=== PATIENT | male | born 1970 | race Hispanic/Latino ===

== ENCOUNTER 2018-08-15 16:24 | Emergency (ER) | payer OTHER, SELFPAY ==
[2018-08-15 16:25] VITALS: BP 156/90; PULSE 80; RESP 18; TEMP 36.5; O2SAT 99; BMI 31.8
--- NOTE | 2018-08-15 17:14 | ED.DCSUM_ITS ---
- ER Visit Summary Date of Service: 08/15/18 Chief Complaint: Back pain History of Present Illness: The patient is a 48 M presenting with back pain ?3 weeks. Patient does not recall a specific injury. He does frequent lifting at work. Today the pain became more severe. He has tried [id number] medication without relief. He denies bowel or bladder incontinence. Denies numbness or weakness. Denies fever. Physical Examination: Vitals are stable. Patient is afebrile. Alert no acute distress. HEENT exam is unremarkable. Neck is supple. Lungs are clear and equal bilaterally. Heart is regular rate and rhythm. Abdomen is soft nontender nondistended. Back: Left paraspinal lumbar muscle tenderness, straight leg raise positive at 30? on the left Extremities are unremarkable. Skin is warm and dry. No focal neurologic deficit. Normal strength and sensation Remainder of exam is unremarkable. Emergency Department Course and Treatment: Patient is given morphine, Zofran IM. On reevaluation, patient is feeling improved. He is given a prescription for Naprosyn and Flexeril. Advised to follow-up with his primary care physician. Advised return to ED if worsening complaints. Disposition: Discharge home Impression: Lumbar strain This note was generated with [employer] dictation software. It may contain incorrect words, spelling, and punctuation that were not noted in review of the chart prior to signing ED Disposition - Plan for ED Patient: Chief Complaint: Back Instructions: ED Neck Back Pain General Prescriptions: Naproxen [Naprosyn] 500 mg PO BID PRN #20 tablet Cyclobenzaprine [Flexeril] 10 mg PO TID PRN #20 tablet PRN Reason: Muscle Spasm Referrals: Care Physician,No Primary [Primary Care Provider] -
[2018-08-15] MEDS: morphine 10 MG/ML Syringe IM (17:24)
[2018-08-15] MEDS: Ondansetron 4 MG/2 ML Vial IM (17:24)
[2018-08-15 17:34] VITALS: BP 152/91; PULSE 87; RESP 16; O2SAT 100
--- NOTE | 2018-08-15 18:32 | ED.DEP ---
ED Disposition - Plan for ED Patient: Chief Complaint: Back Instructions: ED Neck Back Pain General Prescriptions: Naproxen [Naprosyn] 500 mg PO BID PRN #20 tablet Cyclobenzaprine [Flexeril] 10 mg PO TID PRN #20 tablet PRN Reason: Muscle Spasm Referrals: Care Physician,No Primary [Primary Care Provider] -
[2018-08-15 18:56] VITALS: BP 211/115; PULSE 87; RESP 18
[2018-08-15 19:13] VITALS: BP 189/110; PULSE 87; RESP 14; O2SAT 100
== END 2018-08-15 19:14 | disposition home or self-care (01) ==
LOC: ED 18:19
PROVIDERS: Emergency Provider Emergency Medicine
DX: S39.012A Strain of muscle, fascia and tendon of lower back, initial encounter (principal); X50.3XXA Overexertion from repetitive movements, initial encounter; Y93.89 Activity, other specified
CPT/HCPCS: 96372; 99282; J2405

== ENCOUNTER 2018-08-17 13:44 | Emergency (ER) | payer OTHER, SELFPAY ==
[2018-08-17 13:45] VITALS: BP 176/102; PULSE 82; RESP 16; TEMP 36.2; O2SAT 98; BMI 31.3
--- NOTE | 2018-08-17 13:59 | MRI_ITS ---
STUDY: MRI LUMBAR SPINE WITHOUT CONTRAST REASON FOR EXAM: Male, 48 years old. back pain since Cl, acute onset of quadriceps weakness, absent patellar reflex L leg pain and weakness TECHNIQUE: Standardized fat and water weighted pulse sequences were obtained in the sagittal and axial planes. COMPARISON: None FINDINGS: Normal lumbar lordosis. There is no substantial scoliosis. Normal conus medullaris that terminates at the T12-L1 level. There is loss of disc height at L1-2 and L2-3. Vertebral body heights are maintained. Bone marrow signal is normal. There is congenital central canal stenosis. At L4 the AP diameter of the canal measures 5 mm. There is multilevel facet arthropathy and ligamentum flavum hypertrophy. T12/L1: There is a diffuse bulge slightly larger on the right. There is impression on the ventral thecal sac and mild right without left neuroforaminal stenosis. L1/2: There is a diffuse bulge slightly larger on the left. There is impression on the ventral thecal sac and mild left worse than right neuroforaminal stenosis. L2/3: There is a minimal diffuse bulge slightly larger on the left. There is impression on the ventral thecal sac and mild to moderate left and mild right neuroforaminal stenosis. L3/4: There is a mild diffuse bulge slightly larger on the left with the left foraminal and far lateral annular tear. There is no acquired central canal stenosis. There is moderate left and mild to moderate right neuroforaminal stenosis. L4/5: There is a mild diffuse bulge with right foraminal and left paracentral annular tears. There is impression on the ventral thecal sac and [id number] bilateral neuroforaminal stenosis. L5/S1: There is a small right foraminal protrusion with an annular tear. There is mild right neuroforaminal stenosis. No acquired central canal or left neuroforaminal stenosis. Normal visualized sacral ala. Normal visualized paraspinous soft tissue structures. MRI/Spine Lumbar (Routine) IMPRESSION: Multilevel degenerative changes, as described above. There is congenital central canal stenosis. T12/L1: There is a diffuse bulge. There is mild right neuroforaminal stenosis. L1/2: There is a diffuse bulge. There is mild left worse than right neuroforaminal stenosis. L2/3: There is a minimal diffuse bulge. There is mild to moderate left and mild right neuroforaminal stenosis. L3/4: There is a mild diffuse bulge with annular tears. There is moderate left and mild to moderate right neuroforaminal stenosis. L4/5: There is a mild diffuse bulge with annular tears. There is ubri-ep-[id number] bilateral neuroforaminal stenosis. L5/S1: There is a small right foraminal protrusion with an annular tear. There is mild right neuroforaminal stenosis. Electronically Signed: Alexia Gale MD at 16:26 EDT , Service support ,
[2018-08-17] MEDS: Ketorolac 15 MG/ML Vial IV (14:18)
[2018-08-17] MEDS: Morphine 4 MG/ML Syringe IV (14:18)
[2018-08-17] MEDS: Ondansetron 4 MG/2 ML Vial IV (14:18)
--- NOTE | 2018-08-17 14:40 | RAD_ITS ---
STUDY: X-RAY - ORBITS REASON FOR EXAM: Male, 48 years old. This study is being performed as a clearance examination for exclusion of orbital metal, prior to the performance of an MRI examination. TECHNIQUE: 2 view(s) of the orbits were obtained. COMPARISON: None. FINDINGS: Normal bilateral orbits without a metallic orbital foreign body. Normal visualized facial bones. Left maxillary sinus is small. The soft tissue structures are unremarkable. RAD/Orbits for Foreign Body IMPRESSION: No demonstrated metallic orbital foreign body. The patient is cleared for an MRI examination. Electronically Signed: Alexia Gale MD at 15:33 EDT , Service support ,
[2018-08-17 16:26] VITALS: BP 146/92; PULSE 81; RESP 16; O2SAT 97
--- NOTE | 2018-08-17 16:47 | ED.VISSUMM ---
- ER Visit Summary Date of Service: 08/17/18 Chief Complaint: Severe left lower back pain with radiation anteriorly to the knee region History of Present Illness: The patient is a 48 M who was seen on Saturday. The dictated report was read. The written report was not available. He reports he is now walking with a cane. He denies bowel bladder dysfunction. He denies saddle paresthesia or anesthesia. He denies fever or chills. He was prescribed Flexeril and nonsteroidal. There is no history of Direct trauma. He denies foot drop. Please read written note for complete detail. He does report preference of standing versus sitting. Physical Examination: Patient appears uncomfortable. Blood pressure is elevated 176/102. Head is atraumatic normocephalic. Pupils are equal round reactive. Extraocular muscles are intact. TMs are pearly white with landmarks noted. Nares patent with no drainage. Posterior pharynx without erythema or exudate. Uvula is midline. There is no dysphonia or dysphasia. Trachea is midline. There is no stridor with auscultation of the neck. Heart is regular without murmur, gallop or rub. S1 and S2 are normal. Lungs are clear to auscultation with good movement of air bilaterally. Abdomen soft nontender bowel sounds are present normal. Straight leg test is negative right and left. Equivocal femoral stretch test on the left. Patella and ankle reflex are 2+ on the right. Plus minus patellar reflex on the left and 2+ ankle reflex on the left. EHL is intact. There is no clonus or Babinski sign. Normal perianal sensation. DP and PT pulses are palpable and 2+. Test Results: There is congenital central canal stenosis. T12/L1: There is a diffuse bulge. There is mild right neuroforaminal stenosis. L1/2: There is a diffuse bulge. There is mild left worse than right neuroforaminal stenosis. L2/3: There is a minimal diffuse bulge. There is mild to moderate left and mild right neuroforaminal stenosis. L3/4: There is a mild diffuse bulge with annular tears. There is moderate left and mild to moderate right neuroforaminal stenosis. L4/5: There is a mild diffuse bulge with annular tears. There is [id number] bilateral neuroforaminal stenosis. L5/S1: There is a small right foraminal protrusion with an annular tear. There is mild right neuroforaminal stenosis. Emergency Department Course and Treatment: Patient was medicated with 4 mg of morphine and 50 mg Toradol IV push and received Zofran as well. MRI was ordered since the neuro findings are new since Saturday. Treatment Plan: Outpatient follow-up with spine surgeon Disposition: Discharged to home with appropriate home-going instructions. Patient is insured and has a PPO plan. Person with him was told he will need to contact human resources to determine who is on his insurance plan. Impression: Congenital central canal stenosis multilevel This note was generated with [employer] dictation software. It may contain incorrect words, spelling, and punctuation that were not noted in review of the chart prior to signing ED Disposition - Plan for ED Patient: Disposition: Home or Assisted Living Chief Complaint: Back Instructions: ED Neck Back Pain General Prescriptions: Oxycodone HCl/Acetaminophen [Percocet 5/325] 1 tab PO Q6H PRN PRN 5 Days #20 tab PRN Reason: Pain Referrals: Ange Wright, [employer] PROJECT ENGINEER-C [Primary Care Provider] - As soon as possible Additional Instructions: You need to contact human resources at work to determine which spine surgeon is on your health insurance plan. If you are unable to urinate, have loss of bowel or numbness or tingling in your buttocks region return immediately If you develop increased weakness and unable to ambulate return to the emergency department as soon as possible.
--- NOTE | 2018-08-17 16:50 | ED.DCSUM_ITS ---
- ER Visit Summary Date of Service: 08/17/18 Chief Complaint: Severe left lower back pain with radiation anteriorly to the knee region History of Present Illness: The patient is a 48 M who was seen on Saturday. The dictated report was read. The written report was not available. He reports he is now walking with a cane. He denies bowel bladder dysfunction. He denies saddle paresthesia or anesthesia. He denies fever or chills. He was prescribed Flexeril and nonsteroidal. There is no history of Direct trauma. He denies foot drop. Please read written note for complete detail. He does report preference of standing versus sitting. Physical Examination: Patient appears uncomfortable. Blood pressure is elevated 176/102. Head is atraumatic normocephalic. Pupils are equal round reactive. Extraocular muscles are intact. TMs are pearly white with landmarks noted. Nares patent with no drainage. Posterior pharynx without erythema or exudate. Uvula is midline. There is no dysphonia or dysphasia. Trachea is midline. There is no stridor with auscultation of the neck. Heart is regular without murmur, gallop or rub. S1 and S2 are normal. Lungs are clear to auscultation with good movement of air bilaterally. Abdomen soft nontender bowel sounds are present normal. Straight leg test is negative right and left. Equivocal femoral stretch test on the left. Patella and ankle reflex are 2+ on the right. Plus minus patellar reflex on the left and 2+ ankle reflex on the left. EHL is intact. There is no clonus or Babinski sign. Normal perianal sensation. DP and PT pulses are palpable and 2+. Test Results: There is congenital central canal stenosis. T12/L1: There is a diffuse bulge. There is mild right neuroforaminal stenosis. L1/2: There is a diffuse bulge. There is mild left worse than right neuroforaminal stenosis. L2/3: There is a minimal diffuse bulge. There is mild to moderate left and mild right neuroforaminal stenosis. L3/4: There is a mild diffuse bulge with annular tears. There is moderate left and mild to moderate right neuroforaminal stenosis. L4/5: There is a mild diffuse bulge with annular tears. There is [id number] bilateral neuroforaminal stenosis. L5/S1: There is a small right foraminal protrusion with an annular tear. There is mild right neuroforaminal stenosis. Emergency Department Course and Treatment: Patient was medicated with 4 mg of morphine and 50 mg Toradol IV push and received Zofran as well. MRI was ordered since the neuro findings are new since Saturday. Treatment Plan: Outpatient follow-up with spine surgeon Disposition: Discharged to home with appropriate home-going instructions. Patient is insured and has a PPO plan. Person with him was told he will need to contact human resources to determine who is on his insurance plan. Impression: Congenital central canal stenosis multilevel This note was generated with [employer] dictation software. It may contain incorrect words, spelling, and punctuation that were not noted in review of the chart prior to signing ED Disposition - Plan for ED Patient: Disposition: Home or Assisted Living Chief Complaint: Back Instructions: ED Neck Back Pain General Prescriptions: Oxycodone HCl/Acetaminophen [Percocet 5/325] 1 tab PO Q6H PRN PRN 5 Days #20 tab PRN Reason: Pain Referrals: Ange Wright, ROLL REPAIRER-C [Primary Care Provider] - As soon as possible Additional Instructions: You need to contact human resources at work to determine which spine surgeon is on your health insurance plan. If you are unable to urinate, have loss of bowel or numbness or tingling in your buttocks region return immediately If you develop increased weakness and unable to ambulate return to the emergency department as soon as possible.
[2018-08-17 17:09] VITALS: RESP 16
--- NOTE | 2018-08-17 17:09 | ED.RN ---
REVIEWED D/C INSTRUCTIONS, FOLLOW UP CARE, PRESCRIPTION, AND S/S THAT WOULD WARRANT A RETURN TO THE ED WITH PT AND PT'S SPOUSE. BOTH VERBALIZED AN UNDERSTANDING AND DENY FURTHER QUESTIONS FOR THIS RN. PT SKIN WARM/DRY, RESP EVEN AND UNLABORED, PT A&O X 3, NO DISTRESS NOTED. PT AMBULATED OUT OF ED, GAIT STEADY.
== END 2018-08-17 17:10 | disposition home or self-care (01) ==
PROVIDERS: Emergency Provider Emergency Medicine; Family Provider Nurse Practitioner Primary Care; PCP Nurse Practitioner Primary Care
DX: Q76.49 Other congenital malformations of spine, not associated with scoliosis (principal); M48.05 Spinal stenosis, thoracolumbar region; M48.07 Spinal stenosis, lumbosacral region; E66.9 Obesity, unspecified; Z68.31 Body mass index [BMI] 31.0-31.9, adult
CPT/HCPCS: 70030; 72148; 96374; 96375; 99283; A4216; J2405